=== PATIENT | male | born 1980 | race Caucasian/White ===

== ENCOUNTER 2022-01-07 15:06 | Inpatient (IN) | payer OTHER ==
[2022-01-07 15:46] VITALS: BMI 43.2
[2022-01-07] MEDS ORDERED: DICYCLOMINE HCL 10 MG CAPSULE PO PRN (20:33)
[2022-01-07] MEDS ORDERED: IBUPROFEN 400 MG TABLET (FP) PO PRN (20:33)
[2022-01-07] MEDS ORDERED: MAGNESIUM CITRATE 300 ML BOTTLE PO PRN (20:33)
[2022-01-07] MEDS ORDERED: NICOTINE POLACRILEX 2 MG GUM BUC PRN (20:33)
[2022-01-07] MEDS ORDERED: LOPERAMIDE HCL 2 MG CAPSULE PO PRN (20:33)
[2022-01-07] MEDS ORDERED: ONDANSETRON *ODT* 4 MG TABLET SL PRN (20:33)
[2022-01-07] MEDS ORDERED: IBUPROFEN 600 MG TABLET (FP) PO PRN (20:33)
[2022-01-07] MEDS ORDERED: BENZOCAINE/MENTHOL (CHLORASEPTIC ) LOZENGE MM PRN (20:33)
[2022-01-07] MEDS ORDERED: METHOCARBAMOL 500 MG TABLET PO PRN (20:33)
[2022-01-07] MEDS ORDERED: BISMUTH SUBSALICYLATE 524 MG/30 ML PO PRN (20:33)
[2022-01-07] MEDS ORDERED: ACETAMINOPHEN 325 MG TABLET (FP) PO PRN ×2 (20:33)
[2022-01-07] MEDS ORDERED: MAGNESIUM HYDROX 2400MG/30ML ORAL SUSPENSION 30 ML CUP PO PRN (20:33)
[2022-01-07] MEDS ORDERED: MAG HYDROX/AL HYDROX/SIMETH 30 ML UNIT-DOSE CUP PO PRN (20:33)
[2022-01-07] MEDS ORDERED: LORazepam 1 MG TABLET PO PRN (20:37)
[2022-01-07] MEDS ORDERED: MELATONIN 5 MG TABLETS PO SCH (22:00)
[2022-01-07] MEDS ORDERED: THIAMINE HCL 100 MG TABLET (FP) PO SCH (22:00)
[2022-01-07] MEDS: LORazepam 2 MG TABLET PO SCH (22:27)
[2022-01-08] MEDS ORDERED: PATIENT'S OWN MEDICATION (NON-FORMULARY) (Levalbuterol Tartrate [Levalbuterol Tartrate Hfa IH PRN (04:15)
[2022-01-08] MEDS: LORazepam 2 MG TABLET PO SCH ×3 (05:27→17:42)
[2022-01-08] MEDS ORDERED: ALBUTEROL SO4 0.083% IH SOL 2.5 MG/3 ML VIAL.NEB. NEB PRN (09:18)
[2022-01-08] MEDS ORDERED: FLUTICASONE/UMECLIDIN/VILANTER(200-62.5-25 TRELEGY ELLIPTA) INAHLER IH SCH (10:00)
[2022-01-08] MEDS ORDERED: predniSONE 20 MG TABLET (UD) PO ONE (10:00)
[2022-01-08] MEDS ORDERED: FLUTICASONE PROP 0.05% 16 GM NASAL SPRAY NS SCH (10:00)
[2022-01-08] MEDS ORDERED: PRENATAL VITAMINS W/ FOLIC ACID TABLET (FP) PO SCH (10:00)
[2022-01-08] MEDS ORDERED: NICOTINE 14 MG/24 HOURS TOPICAL PATCH TD SCH (10:00)
[2022-01-08] MEDS ORDERED: FAMOTIDINE 20 MG TABLET PO SCH (10:00)
[2022-01-08] MEDS: ALBUTEROL SO4 HFA INHALER IH PRN ×2 (10:28→17:50)
[2022-01-08] MEDS ORDERED: hydrOXYzine PAMOATE 50 MG CAPSULE (FP) PO PRN (10:55)
[2022-01-08] MEDS ORDERED: TOPIRAMATE 100 MG TABLET PO SCH (11:45)
[2022-01-08 13:04] VITALS: PULSE 74
[2022-01-08 14:19] LABS: HEMATOCRIT 40.3 % (35.4-49); HEMOGLOBIN 13.5 GM/dL (11.7-16.9); MCHC 33.5 g/dl (32.0-35.9); MEAN CELL VOLUME 107.5 fl (80-96); MEAN PLT VOLUME 8.2 fl (7.5-11.1); PLATELET COUNT 273 10^3/uL (134-434); RBC 3.75 M/mm3 (4.00-5.60); RDW 15.5 % (11.9-15.9)
[2022-01-08 14:24] LABS: ALBUMIN 3.8 g/dl (3.4-5.0); BLOOD UREA NITROGEN 20.6 mg/dL (7-18)
[2022-01-08 14:26] LABS: CALCIUM 9.4 mg/dL (8.5-10.1)
[2022-01-08 14:29] LABS: CREATININE 1.2 mg/dL (0.55-1.3)
[2022-01-08 14:31] LABS: BILIRUBIN,TOTAL 0.8 mg/dL (0.2-1)
[2022-01-08 15:17] LABS: HIV INTERPRETATION NEGATIVE (NEGATIVE)
[2022-01-08] MEDS ORDERED: PATIENT'S OWN MEDICATION (NON-FORMULARY) (Vortioxetine Hydrobromide [Trintellix] 5 MG Tabl PO SCH (15:45)
[2022-01-08 17:11] VITALS: BP 102/57; RESP 17; TEMP 97.3
[2022-01-08] MEDS ORDERED: QUEtiapine FUMARATE 50 MG TABLET PO SCH (22:00)
[2022-01-08] MEDS ORDERED: MONTELUKAST NA 10 MG TABLET PO SCH (22:00)
[2022-01-09] MEDS ORDERED: LORazepam 1 MG TABLET PO SCH (05:00)
[2022-01-09] MEDS ORDERED: predniSONE 10 MG TABLET (UD) PO ONE (08:00)
[2022-01-10] MEDS ORDERED: LORazepam 0.5 MG TABLET PO PRN
[2022-01-10] MEDS ORDERED: LORazepam 0.5 MG TABLET PO SCH (05:00)
[2022-01-10] MEDS ORDERED: predniSONE 20 MG TABLET (UD) PO ONE (08:00)
[2022-01-11] MEDS ORDERED: LORazepam 0.5 MG TABLET PO ONE (05:00)
[2022-01-11] MEDS ORDERED: predniSONE 10 MG TABLET (UD) PO ONE (08:00)
== END 2022-01-08 19:40 | disposition short-term general hospital (02) | DRG 897 ==
LOC: YASAS 15:06 → Y6N 20:17
PROVIDERS: ADMIT Allergy & Immunology; ATTEND Surgery
PROC: HZ2ZZZZ Detoxification Services for Substance Abuse Treatment (ICD-10-PCS; principal; 2022-01-07)
DX: F10.230 Alcohol dependence with withdrawal, uncomplicated (principal); F13.20 Sedative, hypnotic or anxiolytic dependence, uncomplicated; J45.51 Severe persistent asthma with (acute) exacerbation; Z68.41 Body mass index [BMI] 40.0-44.9, adult; F31.9 Bipolar disorder, unspecified; F43.10 Post-traumatic stress disorder, unspecified; F60.9 Personality disorder, unspecified; G47.33 Obstructive sleep apnea (adult) (pediatric); D51.9 Vitamin B12 deficiency anemia, unspecified; I10 Essential (primary) hypertension; K21.9 Gastro-esophageal reflux disease without esophagitis; E66.01 Morbid (severe) obesity due to excess calories; G40.909 Epilepsy, unspecified, not intractable, without status epilepticus; Z99.89 Dependence on other enabling machines and devices; Z88.0 Allergy status to penicillin
CPT/HCPCS: 36415; 80053; 85027; 86780; 87389; 87811; 93005; 93010; C9803-CS; Q0162; U0003; U0005

== ENCOUNTER 2022-01-08 20:22 | Inpatient (IN) | payer OTHER ==
[2022-01-08] MEDS ORDERED: ONDANSETRON 4 MG/2 ML VIAL IVPUSH ONE (20:57)
[2022-01-08] MEDS ORDERED: SODIUM CHLORIDE 0.9% 500 ML INFUS.BAG IV ONE (20:57)
[2022-01-08] MEDS ORDERED: ONDANSETRON 4 MG/2 ML VIAL ONE (21:06)
[2022-01-08 21:23] LABS: EPI CELLS 2 /uL (0-25.1); HYALINE CASTS 0 /uL (0-3.1); URINE APPEARANCE CLEAR; URINE BACTERIA 4 /uL (0-1359); URINE BILIRUBIN NEGATIVE (NEGATIVE); URINE COLOR DK YELLOW; URINE GLUCOSE (UA) NEGATIVE (NEGATIVE); URINE KETONE 2+ (NEGATIVE); URINE LEUK ESTERASE TRACE (NEGATIVE); URINE NITRITE NEGATIVE (NEGATIVE); URINE PROTEIN TRACE (NEGATIVE); URINE RBC 9 /uL (0-23.9); URINE WBC 12 /uL (0-25.8)
[2022-01-08 21:24] LABS: BASO % 0.3 % (0-2.0); HEMATOCRIT 40.3 % (35.4-49); LYMPH % 7.2 % (8-40); MCH 36.7 pg (25.7-33.7); MCHC 34.7 g/dl (32.0-35.9); MEAN CELL VOLUME 105.6 fl (80-96); MEAN PLT VOLUME 7.4 fl (7.5-11.1); MONO % 4.8 % (3.8-10.2); NEUT % 87.7 % (42.8-82.8); PLATELET COUNT 285 10^3/uL (134-434); RBC 3.81 M/mm3 (4.00-5.60); RDW 15.5 % (11.9-15.9); WHITE BLOOD COUNT 8.5 K/mm3 (4.0-10.0)
[2022-01-08 21:32] LABS: COCAINE, UR NEGATIVE (NEGATIVE); METHADONE, UR NEGATIVE (NEGATIVE); OPIATES, URI NEGATIVE (NEGATIVE); PHENCYCLIDINE,URINE NEGATIVE (NEGATIVE); URINE AMPHETAMINES NEGATIVE (NEGATIVE); URINE BARBITURATES NEGATIVE (NEGATIVE); URINE BENZODIAZEPINES POSITIVE (NEGATIVE)
[2022-01-08 21:55] LABS: ALBUMIN 4.1 g/dl (3.4-5.0); BLOOD UREA NITROGEN 21.4 mg/dL (7-18); CALCIUM 9.9 mg/dL (8.5-10.1)
[2022-01-08 21:56] LABS: ANISOCYTOSIS 2+; MACROCYTOSIS 2+
[2022-01-08 21:58] LABS: CREATININE 1.2 mg/dL (0.55-1.3)
[2022-01-08 22:00] LABS: BILIRUBIN,TOTAL 0.8 mg/dL (0.2-1); TOT PROT 7.9 g/dl (6.4-8.2)
[2022-01-09] MEDS: ALBUTEROL SO4 2.5/IPRATROPIUM 0.5 INH SOL 3 ML VIAL.NEB. NEB SCH ×3 (00:10→00:52)
[2022-01-09] MEDS ORDERED: ACETAMINOPHEN 1000 MG/100 ML BAG IVPB ONE (00:33)
[2022-01-09] MEDS ORDERED: ALBUTEROL SO4 2.5/IPRATROPIUM 0.5 INH SOL 3 ML VIAL.NEB. NEB ONE ×2 (00:38→08:24)
[2022-01-09] MEDS ORDERED: ACETAMINOPHEN INJECTION 100 ML IVPB ONE (00:39)
[2022-01-09] MEDS ORDERED: LORazepam 2 MG TABLET PO ONE (00:48)
[2022-01-09] MEDS ORDERED: LORazepam 1 MG TABLET ONE ×3 (00:55→10:39)
[2022-01-09] MEDS ORDERED: QUEtiapine FUMARATE 50 MG TABLET PO ONE (03:36)
[2022-01-09] MEDS ORDERED: QUEtiapine FUMARATE 25 MG TABLET ONE (03:41)
[2022-01-09 03:59] LABS: VENOUS BASE EXCESS -1.5 mmol/L (-2-2); VENOUS O2 SATURATION 97.1 % (70-80); VENOUS PCO2 32.6 mmHg (38-52); VENOUS PH 7.444 (7.310-7.410)
[2022-01-09] MEDS ORDERED: LORazepam 1 MG TABLET PO PRN (04:14)
[2022-01-09] MEDS ORDERED: AZITHROMYCIN IVPB 500 MG in DEXTROSE 5%-WATER - 250 ML IVPB SCH (04:15)
[2022-01-09] MEDS ORDERED: methylPREDNISolone NA SUCC 40 MG/1 ML VIAL ONE ×2 (04:34→09:41)
[2022-01-09] MEDS ORDERED: AZITHROMYCIN IVPB 500 MG/250 ML BAG IVPB ONE (04:34)
[2022-01-09] MEDS: methylPREDNISolone NA SUCC 40 MG/1 ML VIAL IVPUSH SCH ×2 (04:47→09:53)
[2022-01-09] MEDS: LORazepam 1 MG TABLET PO SCH ×4 (05:59→23:00)
[2022-01-09 07:20] LABS: ALBUMIN 3.8 g/dl (3.4-5.0); BLOOD UREA NITROGEN 22.3 mg/dL (7-18); CALCIUM 9.1 mg/dL (8.5-10.1); MAGNESIUM 2.2 mg/dL (1.8-2.4)
[2022-01-09 07:23] LABS: BASO % 0.3 % (0-2.0); EOS % 0.6 % (0-4.5); HEMATOCRIT 38.2 % (35.4-49); LYMPH % 14.9 % (8-40); MCH 36.5 pg (25.7-33.7); MCHC 34.1 g/dl (32.0-35.9); MEAN CELL VOLUME 106.9 fl (80-96); MONO % 9.8 % (3.8-10.2); NEUT % 74.4 % (42.8-82.8); PLATELET COUNT 227 10^3/uL (134-434); RBC 3.57 M/mm3 (4.00-5.60); RDW 15.7 % (11.9-15.9); WHITE BLOOD COUNT 6.9 K/mm3 (4.0-10.0)
[2022-01-09 07:24] LABS: CREATININE 1.2 mg/dL (0.55-1.3); PHOSPHOROUS 3.6 mg/dL (2.5-4.9)
[2022-01-09 07:26] LABS: BILIRUBIN,TOTAL 0.8 mg/dL (0.2-1); TOT PROT 7.2 g/dl (6.4-8.2)
[2022-01-09] MEDS: ALBUTEROL SO4 2.5/IPRATROPIUM 0.5 INH SOL 3 ML VIAL.NEB. NEB PRN (08:29)
[2022-01-09] MEDS ORDERED: ONDANSETRON 4 MG/2 ML VIAL IVPUSH ONE ×2 (08:34→10:45)
[2022-01-09] MEDS: ASPIRIN 81 MG CHEWABLE TABLETS PO SCH (08:42)
[2022-01-09] MEDS ORDERED: THIAMINE HCL 100 MG TABLET (FP) ONE (09:40)
[2022-01-09] MEDS ORDERED: FOLIC ACID 1 MG TABLET (FP) ONE (09:40)
[2022-01-09] MEDS ORDERED: ENOXAPARIN NA (PORCINE) 40 MG/0.4 ML DISP.SYRIN SQ ONE (09:40)
[2022-01-09] MEDS ORDERED: NICOTINE 7 MG/24 HOURS TOPICAL PATCH TD ONE (09:40)
[2022-01-09] MEDS: FOLIC ACID 1 MG TABLET (FP) PO SCH (09:53)
[2022-01-09] MEDS: ENOXAPARIN NA (PORCINE) 40 MG/0.4 ML DISP.SYRIN SQ SCH ×2 (09:53→21:42)
[2022-01-09] MEDS: THIAMINE HCL 100 MG TABLET (FP) PO SCH (09:53)
[2022-01-09] MEDS ORDERED: NICOTINE 7 MG/24 HOURS TOPICAL PATCH TD SCH (10:00)
[2022-01-09] MEDS: BUDESONIDE/FORMETEROL FUMARATE 80/4.5 mcg INHALER IH SCH ×2 (10:46→22:59)
[2022-01-09] MEDS ORDERED: ONDANSETRON 4 MG/2 ML VIAL ONE (10:47)
[2022-01-09] MEDS: NYSTATIN 100,000 UNIT/GM TOPICAL CREAM 15 GM TUBE TP SCH ×3 (11:31→22:59)
[2022-01-09] MEDS ORDERED: FLUTICASONE/UMECLIDIN/VILANTER(200-62.5-25 TRELEGY ELLIPTA) INAHLER IH SCH (14:30)
[2022-01-09] MEDS ORDERED: SODIUM CHLORIDE 1,000 ML IV SCH (15:00)
[2022-01-09] MEDS: LISINOPRIL 20 MG TABLET PO SCH (16:22)
[2022-01-09] MEDS: TIOTROPIUM BROMIDE 2.5 MCG (SPIRIVA) RESPIMAT INHALER IH SCH (16:23)
[2022-01-09] MEDS: clonazePAM 2 MG TABLET PO SCH ×2 (16:23→21:40)
[2022-01-09] MEDS: TOPIRAMATE 100 MG TABLET PO SCH ×2 (16:23→21:40)
[2022-01-09 17:12] VITALS: RESP 20; BMI 44.0
[2022-01-09] MEDS ORDERED: PATIENT'S OWN MEDICATION (NON-FORMULARY) (Vortioxetine Hydrobromide [Trintellix] 5 MG Tabl PO SCH (18:45)
[2022-01-09] MEDS: VORTIOXETINE PO SCH (21:39)
[2022-01-09] MEDS: MONTELUKAST NA 10 MG TABLET PO SCH (21:40)
[2022-01-09] MEDS: QUEtiapine FUMARATE 50 MG TABLET PO SCH (21:40)
[2022-01-09] MEDS: NICOTINE POLACRILEX 2 MG GUM BUC PRN (21:41)
[2022-01-09] MEDS ORDERED: ONDANSETRON 4 MG/2 ML VIAL IVPB ONE (23:59)
[2022-01-10] MEDS: ALBUTEROL SO4 2.5/IPRATROPIUM 0.5 INH SOL 3 ML VIAL.NEB. NEB PRN ×2 (00:38→21:06)
[2022-01-10] MEDS: LORazepam 1 MG TABLET PO SCH ×4 (05:13→22:09)
[2022-01-10] MEDS: clonazePAM 2 MG TABLET PO SCH ×3 (05:13→21:50)
[2022-01-10] MEDS ORDERED: MONTELUKAST NA 10 MG TABLET PO SCH (10:00)
[2022-01-10] MEDS: NICOTINE 14 MG/24 HOURS TOPICAL PATCH TD SCH (10:49)
[2022-01-10] MEDS: ENOXAPARIN NA (PORCINE) 40 MG/0.4 ML DISP.SYRIN SQ SCH ×2 (10:50→21:50)
[2022-01-10] MEDS: FOLIC ACID 1 MG TABLET (FP) PO SCH (10:51)
[2022-01-10] MEDS: LISINOPRIL 20 MG TABLET PO SCH (10:51)
[2022-01-10] MEDS: THIAMINE HCL 100 MG TABLET (FP) PO SCH (10:51)
[2022-01-10] MEDS: predniSONE 20 MG TABLET (UD) PO SCH (10:51)
[2022-01-10] MEDS: TOPIRAMATE 100 MG TABLET PO SCH ×2 (10:52→21:51)
[2022-01-10] MEDS: ASPIRIN 81 MG CHEWABLE TABLETS PO SCH (10:52)
[2022-01-10] MEDS: NYSTATIN 100,000 UNIT/GM TOPICAL CREAM 15 GM TUBE TP SCH ×2 (10:53→21:51)
[2022-01-10] MEDS: VORTIOXETINE PO SCH (10:53)
[2022-01-10] MEDS: BUDESONIDE/FORMETEROL FUMARATE 80/4.5 mcg INHALER IH SCH ×2 (11:01→21:51)
[2022-01-10] MEDS: TIOTROPIUM BROMIDE 2.5 MCG (SPIRIVA) RESPIMAT INHALER IH SCH (11:01)
[2022-01-10 12:32] LABS: BASO % 0.7 % (0-2.0); EOS % 0.1 % (0-4.5); HEMATOCRIT 37.8 % (35.4-49); HEMOGLOBIN 12.6 GM/dL (11.7-16.9); MCH 36.1 pg (25.7-33.7); MCHC 33.4 g/dl (32.0-35.9); MEAN CELL VOLUME 108.1 fl (80-96); MEAN PLT VOLUME 8.3 fl (7.5-11.1); NEUT % 69.2 % (42.8-82.8); PLATELET COUNT 240 10^3/uL (134-434); RBC 3.49 M/mm3 (4.00-5.60); RDW 15.7 % (11.9-15.9); WHITE BLOOD COUNT 6.5 K/mm3 (4.0-10.0)
[2022-01-10] MEDS ORDERED: ONDANSETRON 4 MG/2 ML VIAL IVPUSH ONE (13:47)
[2022-01-10 14:45] LABS: BLOOD UREA NITROGEN 25.4 mg/dL (7-18); CALCIUM 8.7 mg/dL (8.5-10.1)
[2022-01-10 14:48] LABS: CREATININE 1.1 mg/dL (0.55-1.3)
[2022-01-10] MEDS: QUEtiapine FUMARATE 50 MG TABLET PO SCH (21:51)
[2022-01-10] MEDS: MONTELUKAST NA 10 MG TABLET PO SCH (21:51)
[2022-01-11] MEDS ORDERED: LORazepam 0.5 MG TABLET PO PRN
[2022-01-11] MEDS: LORazepam 0.5 MG TABLET PO SCH ×4 (05:53→23:06)
[2022-01-11] MEDS: clonazePAM 2 MG TABLET PO SCH ×3 (05:55→22:57)
[2022-01-11 10:20] LABS: BASO % 0.6 % (0-2.0); EOS % 0.5 % (0-4.5); HEMATOCRIT 35.5 % (35.4-49); HEMOGLOBIN 11.9 GM/dL (11.7-16.9); LYMPH % 25.3 % (8-40); MCH 36.5 pg (25.7-33.7); MCHC 33.6 g/dl (32.0-35.9); MEAN CELL VOLUME 108.6 fl (80-96); MEAN PLT VOLUME 8.4 fl (7.5-11.1); MONO % 12.1 % (3.8-10.2); NEUT % 61.5 % (42.8-82.8); PLATELET COUNT 218 10^3/uL (134-434); RBC 3.27 M/mm3 (4.00-5.60); WHITE BLOOD COUNT 6.4 K/mm3 (4.0-10.0)
[2022-01-11 11:07] LABS: BLOOD UREA NITROGEN 30.9 mg/dL (7-18); CALCIUM 8.9 mg/dL (8.5-10.1)
[2022-01-11 11:08] LABS: CREATININE 1.1 mg/dL (0.55-1.3)
[2022-01-11] MEDS: TOPIRAMATE 100 MG TABLET PO SCH ×2 (11:16→22:58)
[2022-01-11] MEDS: ASPIRIN 81 MG CHEWABLE TABLETS PO SCH (11:16)
[2022-01-11] MEDS: predniSONE 20 MG TABLET (UD) PO SCH (11:17)
[2022-01-11] MEDS: THIAMINE HCL 100 MG TABLET (FP) PO SCH (11:17)
[2022-01-11] MEDS: FOLIC ACID 1 MG TABLET (FP) PO SCH (11:17)
[2022-01-11] MEDS: NICOTINE 14 MG/24 HOURS TOPICAL PATCH TD SCH (11:17)
[2022-01-11] MEDS: LISINOPRIL 20 MG TABLET PO SCH (11:17)
[2022-01-11] MEDS: ENOXAPARIN NA (PORCINE) 40 MG/0.4 ML DISP.SYRIN SQ SCH ×2 (11:18→22:59)
[2022-01-11] MEDS: VORTIOXETINE PO SCH (11:18)
[2022-01-11] MEDS: NYSTATIN 100,000 UNIT/GM TOPICAL CREAM 15 GM TUBE TP SCH ×2 (11:18→22:59)
[2022-01-11] MEDS: BUDESONIDE/FORMETEROL FUMARATE 80/4.5 mcg INHALER IH SCH ×2 (11:21→22:59)
[2022-01-11] MEDS: TIOTROPIUM BROMIDE 2.5 MCG (SPIRIVA) RESPIMAT INHALER IH SCH (11:21)
[2022-01-11] MEDS: NICOTINE POLACRILEX 2 MG GUM BUC PRN (15:20)
[2022-01-11] MEDS ORDERED: TRIMETHOBENZAMIDE HCL 200MG/2ML INJ IM PRN (17:30)
[2022-01-11] MEDS ORDERED: PANTOPRAZOLE 40 MG TABLET PO ONE (17:34)
[2022-01-11] MEDS: MONTELUKAST NA 10 MG TABLET PO SCH (22:58)
[2022-01-11] MEDS: QUEtiapine FUMARATE 50 MG TABLET PO SCH (22:58)
[2022-01-11] MEDS: ALBUTEROL SO4 2.5/IPRATROPIUM 0.5 INH SOL 3 ML VIAL.NEB. NEB PRN (23:08)
[2022-01-12] MEDS ORDERED: LORazepam 0.5 MG TABLET PO ONE (05:00)
[2022-01-12] MEDS: clonazePAM 2 MG TABLET PO SCH ×3 (06:43→21:31)
[2022-01-12 09:29] LABS: BASO % 0.3 % (0-2.0); EOS % 0.5 % (0-4.5); HEMATOCRIT 35.7 % (35.4-49); HEMOGLOBIN 12.3 GM/dL (11.7-16.9); LYMPH % 20.2 % (8-40); MCH 36.7 pg (25.7-33.7); MCHC 34.5 g/dl (32.0-35.9); MEAN CELL VOLUME 106.5 fl (80-96); MEAN PLT VOLUME 8.3 fl (7.5-11.1); MONO % 10.7 % (3.8-10.2); NEUT % 68.3 % (42.8-82.8); PLATELET COUNT 243 10^3/uL (134-434); RBC 3.36 M/mm3 (4.00-5.60); RDW 15.7 % (11.9-15.9); WHITE BLOOD COUNT 8.3 K/mm3 (4.0-10.0)
[2022-01-12 09:56] LABS: BLOOD UREA NITROGEN 30.8 mg/dL (7-18)
[2022-01-12 09:59] LABS: CALCIUM 9.1 mg/dL (8.5-10.1)
[2022-01-12] MEDS: ASPIRIN 81 MG CHEWABLE TABLETS PO SCH (10:52)
[2022-01-12] MEDS: THIAMINE HCL 100 MG TABLET (FP) PO SCH (10:52)
[2022-01-12] MEDS: FOLIC ACID 1 MG TABLET (FP) PO SCH (10:52)
[2022-01-12] MEDS: LISINOPRIL 20 MG TABLET PO SCH (10:52)
[2022-01-12] MEDS: predniSONE 20 MG TABLET (UD) PO SCH (10:52)
[2022-01-12] MEDS: TOPIRAMATE 100 MG TABLET PO SCH ×2 (10:52→21:33)
[2022-01-12] MEDS: PANTOPRAZOLE 40 MG TABLET PO SCH (10:53)
[2022-01-12] MEDS: NICOTINE 14 MG/24 HOURS TOPICAL PATCH TD SCH (10:53)
[2022-01-12] MEDS: VORTIOXETINE PO SCH (10:53)
[2022-01-12] MEDS: ENOXAPARIN NA (PORCINE) 40 MG/0.4 ML DISP.SYRIN SQ SCH ×2 (10:54→21:31)
[2022-01-12] MEDS: NYSTATIN 100,000 UNIT/GM TOPICAL CREAM 15 GM TUBE TP SCH ×2 (10:54→21:34)
[2022-01-12] MEDS: TIOTROPIUM BROMIDE 2.5 MCG (SPIRIVA) RESPIMAT INHALER IH SCH (10:55)
[2022-01-12] MEDS: BUDESONIDE/FORMETEROL FUMARATE 80/4.5 mcg INHALER IH SCH ×2 (10:55→21:34)
[2022-01-12] MEDS: NICOTINE POLACRILEX 2 MG GUM BUC PRN ×2 (14:55→21:52)
[2022-01-12] MEDS ORDERED: ONDANSETRON 4 MG/2 ML VIAL IVPB PRN (17:54)
[2022-01-12] MEDS: QUEtiapine FUMARATE 50 MG TABLET PO SCH (21:32)
[2022-01-12] MEDS: MONTELUKAST NA 10 MG TABLET PO SCH (21:33)
[2022-01-12] MEDS: ONDANSETRON 4 MG/2 ML VIAL IVPUSH PRN (21:35)
[2022-01-13] MEDS: ALBUTEROL SO4 2.5/IPRATROPIUM 0.5 INH SOL 3 ML VIAL.NEB. NEB PRN (05:16)
[2022-01-13] MEDS: clonazePAM 2 MG TABLET PO SCH ×3 (06:18→21:32)
[2022-01-13] MEDS: ONDANSETRON 4 MG/2 ML VIAL IVPUSH PRN ×2 (08:36→16:58)
[2022-01-13] MEDS: LISINOPRIL 20 MG TABLET PO SCH (09:19)
[2022-01-13] MEDS: FOLIC ACID 1 MG TABLET (FP) PO SCH (09:20)
[2022-01-13] MEDS: TOPIRAMATE 100 MG TABLET PO SCH ×2 (09:21→21:32)
[2022-01-13] MEDS: ASPIRIN 81 MG CHEWABLE TABLETS PO SCH (09:21)
[2022-01-13] MEDS: NYSTATIN 100,000 UNIT/GM TOPICAL CREAM 15 GM TUBE TP SCH ×2 (09:21→21:32)
[2022-01-13] MEDS: THIAMINE HCL 100 MG TABLET (FP) PO SCH (09:21)
[2022-01-13] MEDS: NICOTINE 14 MG/24 HOURS TOPICAL PATCH TD SCH (09:21)
[2022-01-13] MEDS: PANTOPRAZOLE 40 MG TABLET PO SCH (09:21)
[2022-01-13] MEDS: ENOXAPARIN NA (PORCINE) 40 MG/0.4 ML DISP.SYRIN SQ SCH ×2 (09:22→21:32)
[2022-01-13] MEDS: VORTIOXETINE PO SCH (09:23)
[2022-01-13] MEDS: BUDESONIDE/FORMETEROL FUMARATE 80/4.5 mcg INHALER IH SCH ×2 (09:23→21:35)
[2022-01-13] MEDS: TIOTROPIUM BROMIDE 2.5 MCG (SPIRIVA) RESPIMAT INHALER IH SCH (09:23)
[2022-01-13] MEDS: NICOTINE POLACRILEX 2 MG GUM BUC PRN ×2 (09:24→21:41)
[2022-01-13] MEDS ORDERED: predniSONE 10 MG TABLET (UD) PO SCH (10:00)
[2022-01-13] MEDS ORDERED: predniSONE 20 MG TABLET (UD) PO SCH (15:18)
[2022-01-13] MEDS: MONTELUKAST NA 10 MG TABLET PO SCH (21:31)
[2022-01-13] MEDS: QUEtiapine FUMARATE 50 MG TABLET PO SCH (21:33)
[2022-01-14] MEDS: ONDANSETRON 4 MG/2 ML VIAL IVPUSH PRN ×2 (00:47→08:52)
[2022-01-14] MEDS: clonazePAM 2 MG TABLET PO SCH (05:56)
[2022-01-14 06:35] VITALS: BP 92/74; TEMP 97.9
[2022-01-14 07:53] VITALS: PULSE 68
[2022-01-14] MEDS ORDERED: ONDANSETRON *ODT* 4 MG TABLET SL PRN (09:00)
[2022-01-14] MEDS: PANTOPRAZOLE 40 MG TABLET PO SCH (09:42)
[2022-01-14] MEDS: ASPIRIN 81 MG CHEWABLE TABLETS PO SCH (09:42)
[2022-01-14] MEDS: LISINOPRIL 20 MG TABLET PO SCH (09:42)
[2022-01-14] MEDS: THIAMINE HCL 100 MG TABLET (FP) PO SCH (09:42)
[2022-01-14] MEDS: NICOTINE 14 MG/24 HOURS TOPICAL PATCH TD SCH (09:42)
[2022-01-14] MEDS: ENOXAPARIN NA (PORCINE) 40 MG/0.4 ML DISP.SYRIN SQ SCH (09:43)
[2022-01-14] MEDS: NYSTATIN 100,000 UNIT/GM TOPICAL CREAM 15 GM TUBE TP SCH (09:43)
[2022-01-14] MEDS: FOLIC ACID 1 MG TABLET (FP) PO SCH (09:43)
[2022-01-14] MEDS: VORTIOXETINE PO SCH (09:43)
[2022-01-14] MEDS: BUDESONIDE/FORMETEROL FUMARATE 80/4.5 mcg INHALER IH SCH (09:44)
[2022-01-14] MEDS: TIOTROPIUM BROMIDE 2.5 MCG (SPIRIVA) RESPIMAT INHALER IH SCH (09:44)
[2022-01-14] MEDS: TOPIRAMATE 100 MG TABLET PO SCH (09:45)
[2022-01-14] MEDS: NICOTINE POLACRILEX 2 MG GUM BUC PRN (09:45)
== END 2022-01-14 13:44 | disposition home or self-care (01) | DRG 202 ==
LOC: JER 20:22 → JERBED 20:58 → J8W 01-09 12:35
PROVIDERS: ADMIT Internal Medicine; ATTEND Internal Medicine
PROC: 5A09357 Assistance with Respiratory Ventilation, Less than 24 Consecutive Hours, Continuous Positive Airway Pressure (ICD-10-PCS; principal; 2022-01-12)
DX: J45.901 Unspecified asthma with (acute) exacerbation (principal); F10.239 Alcohol dependence with withdrawal, unspecified; Z68.41 Body mass index [BMI] 40.0-44.9, adult; F17.210 Nicotine dependence, cigarettes, uncomplicated; E66.01 Morbid (severe) obesity due to excess calories; R21 Rash and other nonspecific skin eruption; F60.3 Borderline personality disorder; L30.4 Erythema intertrigo
CPT/HCPCS: 36415; 71046-TC-FY; 76700-TC; 80048; 80053; 80307; 81003; 82607; 82803; 83036; 83735; 84100; 85025; 86705; 86707; 86708; 87086; 87350; 87517; 87522; 93005; 93010; 94640; 94660; 99285-25; C9803-CS; U0003; U0005